=== PATIENT | female | born 1970 | race Caucasian/White ===

== ENCOUNTER 2016-05-26 11:08 | Emergency (ER) | payer OTHER ==
--- NOTE | 2016-05-26 13:50 | ED ORDER SUMMARY ---
..... Patient: ABDON SALDAÑA OrderSheet [facility] VisitID: [id number] [address] [place] [address] 45y, F Registration Date/Time: 05/26/2016 ORDER SHEET Weight: 54.4 kg (stated) Allergies: No Known Drug Allergy GENERAL ORDERS: Suture Set-up: (11:50 05/26/2016 Kilo Bray) (12:41 Lucila R.N.) MEDICATION ORDERS: Oxycodone-APAP PO 5/325 mg (HIGH ALERT MEDICATION, NOW) (11:50 05/26/2016 Kilo Bray) (12:26 Lucila R.N.) IV FLUIDS: ORDER SHEET NOTES: [Electronically signed by Rafael Sanabria Dr. (13:53 05/26/2016)] [Electronically signed by Sobia De Oliveira R.N. (16:19 05/26/2016)] [Electronically locked/signed by Sobia De Oliveira R.N. (16:19 05/26/2016)]
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
--- NOTE | 2016-05-26 13:50 | ED ORDER SUMMARY ---
..... Patient: ABDON SALDAÑA OrderSheet [facility] VisitID: [id number] [address] [place] [address] 45y, F Registration Date/Time: 05/26/2016 ORDER SHEET Weight: 54.4 kg (stated) Allergies: No Known Drug Allergy GENERAL ORDERS: Suture Set-up: (11:50 05/26/2016 Kilo Bray) (12:41 Lucila R.N.) MEDICATION ORDERS: Oxycodone-APAP PO 5/325 mg (HIGH ALERT MEDICATION, NOW) (11:50 05/26/2016 Kilo Bray) (12:26 Lucila R.N.) IV FLUIDS: ORDER SHEET NOTES: [Electronically signed by Rafael Sanabria Dr. (13:53 05/26/2016)] [Electronically signed by Sobia De Oliveira R.N. (16:19 05/26/2016)] [Electronically locked/signed by Sobia De Oliveira R.N. (16:19 05/26/2016)]
--- NOTE | 2016-05-26 16:19 | ED MED RECONCILIATION SUMMARY ---
Patient: ABDON SALDAÑA Medication Reconciliation Report [facility] VisitID: [id number] [address] [place] [address] 45y, F Registration Date/Time: 05/26/2016 Weight: 54.4 kg Height/Length: 66 in. BMI: 19.4 ALLERGIES: No Known Drug Allergy The patient's Home Medications are listed below: CONTINUE TAKING THE FOLLOWING MEDICATIONS: Humira Pen Subcutaneous The source(s) of the original Home Medication information: Not obtained. The following Medications were given to the patient in the Emergency Department: Oxycodone-APAP [PO] PO 1 tab, administered: 05/26/2016 12:26:00 PM The following Medications were prescribed to the patient: Hydrocodone/APAP 5mg / 325mg: take 1 orally every 6 hours as needed for pain. Dispense ten (10). No refill. -- Rafael Sanabrai Dr.
--- NOTE | 2016-05-26 16:19 | ED MED RECONCILIATION SUMMARY ---
Patient: ABDON SALDAÑA Medication Reconciliation Report [facility] VisitID: [id number] [address] [place] [address] 45y, F Registration Date/Time: 05/26/2016 Weight: 54.4 kg Height/Length: 66 in. BMI: 19.4 ALLERGIES: No Known Drug Allergy The patient's Home Medications are listed below: CONTINUE TAKING THE FOLLOWING MEDICATIONS: Humira Pen Subcutaneous The source(s) of the original Home Medication information: Not obtained. The following Medications were given to the patient in the Emergency Department: Oxycodone-APAP [PO] PO 1 tab, administered: 05/26/2016 12:26:00 PM The following Medications were prescribed to the patient: Hydrocodone/APAP 5mg / 325mg: take 1 orally every 6 hours as needed for pain. Dispense ten (10). No refill. -- Rafael Sanabria Dr.
--- NOTE | 2016-05-26 16:19 | ED MAR SUMMARY ---
..... Medication Administration Record [facility] [address] [place] [address] Patient: ABDON SALDAÑA Visit ID: [id number] 45y, F Weight: 54.4 kg Height/Length: 66 in BMI: 19.4 ALLERGIES: No Known Drug Allergy Given 12:26 05/26/2016 Sobia De Oliveira R.N. Medication Administered: OXYCODONE-APAP [PO] (OXYCODONE-ACETAMINOPHEN), Dose: 1 tab 5/325 mg Tablets PO. Medication Ordered: Oxycodone-APAP PO 5/325 mg (HIGH ALERT MEDICATION, NOW).
--- NOTE | 2016-05-26 16:19 | ED DISCHARGE INSTRUCTIONS ---
Patient: ABDON SALDAÑA General Instructions [facility] VisitID: [id number] [place] [address] 45y, F Registration Date/Time: 05/26/2016 Single deep laceration to the forehead.Treatment of laceration not delayed. No infection or foreign body present. Single contusion to the chin. INSTRUCTIONS Protect wound and keep wound area clean. Change dressing twice daily. Apply bacitracin twice daily. Your Current Medications: CONTINUE TAKING THE FOLLOWING MEDICATIONS: Humira Pen Subcutaneous. Prescription Medications: Hydrocodone/APAP 5mg / 325mg: take 1 orally every 6 hours as needed for pain. Dispense ten (10). No refill. Follow-up: Follow up with your doctor in five days for suture removal. Call for an appointment. Screening today revealed the patient's blood pressure to be in the normal range. ADDITIONAL INFORMATION Laceration (All Closures) Alaceration is a cut through the skin. This will usually require stitches (sutures) or miranda if it is deep. Minor cuts may be treated with a surgical tape closure orskin glue. Home care The following guidelines will help you care for your laceration at home: Extremity, face, or trunk wounds Keep the wound clean and dry. If a bandage was applied and it becomes wet or dirty, replace it. Otherwise, leave it in place for the first 24 hours. If stitches or miranda were used, clean the wound daily. After removing the bandage, wash the area with soap and water. Use a wet cotton swab to loosen and remove any blood or crust that forms. The doctor may prescribe an antibiotic cream or ointment to prevent infection. Do not stop taking this medication until you have finished the prescribed course or the doctor tells you to stop. The doctor may also prescribe medications for pain. Follow the doctors instructions for taking these medications. You may remove the bandage to shower as usual after the first 24 hours, but do not soak the area in water (no swimming) until the stitches or miranda are removed. If surgical tape was used, keep the area clean and dry. If it becomes wet, blot it dry with a towel. If skin glue was used, do not scratch, rub, or pick at the adhesive film. Do not place tape directly over the film. Do not apply liquid, ointment, or creams to the wound while the film is in place. Do not clean the wound with peroxide and do not apply ointments. Avoid activities that cause heavy sweating until the film has fallen off. Protect the wound from prolonged exposure to sunlight or tanning lamps. You may shower as usual but do not soak the wound in water (no baths or swimming). The film will fall off by itself in 510 days. Scalp wounds During the first two days, you may carefully rinse your hair in the shower to remove blood, glass or dirt particles. After two days, you may shower and shampoo your hair normally. Do not soak your scalp in the tub or go swimming until the stitches or miranda have been removed. Talk with your doctor before applying any antibiotic ointment to the wound. Mouth wounds Eat soft foods to reduce pain. If the cut is inside of your mouth, clean by rinsing after each meal and at bedtime with a mixture of equal parts water and hydrogen peroxide (do not swallow!). Or, you can use a cotton swab to directly apply hydrogen peroxide onto the cut. Mouth wounds can be painful when eating. You may use an [id number]-[id number] local numbing solution for pain relief. If this is not available, you may use any numbing solution for teething babies. You may apply this directly to the sores with a cotton-tip swab or with your finger. Follow-up care Follow up with your health care provider. Most skin wounds heal within ten days. Mouth and facial wounds heal within five days. However, even with proper treatment, a wound infection may sometimes occur. Therefore, you should check the wound daily for signs of infection listed below. Stitches should be removed from the face within five days; stitches and miranda should be removed from other parts of the body within 714 days. If dissolving stitches were used in the mouth, these will fall out or dissolve without the need for removal. If tape closures were used, remove them yourself if they have not fallen off after 7 days. Ifskin glue was used, the film will fall off by itself in 510 days. When to seek medical care Get prompt medical attention if any of these occur: Bleeding not controlled by direct pressure Signs of infection, including increasing pain in the wound, increasing wound redness or swelling, or pus coming from the wound Fever of 100.4F (38C) or higher, or as directed by your health care provider Stitches or miranda come apart or fall out or surgical tape falls off before 7 days Wound edges re-open Laceration: Will There Be A Scar? A laceration is a cut through one or more layers of the skin. The goal of emergency treatment is to clean the wound and close it to prevent infection, control bleeding and speed healing. Cuts heal because the body is able to repair the skin by "sealing" the edges together with collagen, a kind of "skin cement." How deep your cut is, its location on your body, your age and the way your skin heals all determine how visible the final scar will be. Some persons tend to heal with more scar tissue than others. This cut will probably heal similar to other cuts you have had in the past. What You Can Do: There are a few simple things that you can do to limit the amount of scar that forms: 1) PREVENT INFECTION: An infected wound makes a bigger scar. Keep the wound clean and dry. Change the dressing and apply any ointment/cream as directed. 2) MASSAGE THE WOUND:After the stitches have been removed: Use a moisturizing cream or lotion containing Aloe or Vitamin E Oil and gently massage the skin around the wound with your fingertips (wash your hands first!). Do this twice a day for the first two weeks, then once a day for a month. This will increase the flow of oxygen and blood to the wound and prevent excess scar tissue from building up. 3) AVOID SUN EXPOSURE: During the first six months, avoid sun exposure since the scar may dougherty a much darker color than the skin around it. When in the sun, use SPF #50 (or greater) sun block on the scar, or cover the area with a hat or clothing. What To Expect: -- The cut will be sealed within 2 days and will be strong within 5-10 days. However, it will take at least SIX MONTHS for it to be fully healed. -- During the FIRST THREE MONTHS, you may notice the scar line getting more red or purple in color. The scar may become raised. The skin around the wound may feel thick and lumpy. -- During the FOURTH TO SIXTH MONTHS, this process begins to reverse. The red and purple color will fade, the scar line flattens, and the skin around it feels more normal. -- In most cases, the way the scar line looks after six months is the way it will remain, although there may be some continued improvement up to one year after the injury. Is There Anything Else That Can Be Done? If you do not like the way the scar looks after six months, a plastic surgeon may be able to perform a "scar revision." If you have any questions or problems as your wound heals, contact your doctor or this facility. We will be glad to assist you. Bandage Change If the bandage becomes wet or dirty, replace it. Otherwise, leave it in place for the first 24 hours. Then once a day: After removing the bandage, wash the area with soap and water. Use a wet cotton swab to loosen and remove any blood or crust that forms on the wound. After cleaning, apply a thin layer of antibiotic ointment or cream. Reapply the bandage. You may shower as usual after the first 24 hours. If the bandage is on an arm or leg, cover it with a plastic bag rubber banded at both ends before showering. No tub baths or swimming until the bandage is removed and the wound healed (at least 7 days). Hydrocodone Bitartrate, Acetaminophen Oral tablet What is this medicine? ACETAMINOPHEN; HYDROCODONE (a set a MARNI beatriz fen; ofe droe KOE done) is a pain reliever. It is used to treat mild to moderate pain. How should I use this medicine? Take this medicine by mouth. Swallow it with a full glass of water. Follow the directions on the prescription label. If the medicine upsets your stomach, take the medicine with food or milk. Do not take more than you are told to take. Talk to your program advisor regarding the use of this medicine in children. This medicine is not approved for use in children. What side effects may I notice from receiving this medicine? Side effects that you should report to your doctor or health mall plant caretaker as soon as possible: allergic reactions like skin rash, itching or hives, swelling of the face, lips, or tongue breathing problems confusion feeling faint or lightheaded, falls stomach pain yellowing of the eyes or skin Side effects that usually do not require medical attention (report to your doctor or health mall plant caretaker if they continue or are bothersome): nausea, vomiting stomach upset What may interact with this medicine? alcohol antihistamines isoniazid medicines for depression, anxiety, or psychotic disturbances medicines for sleep muscle relaxants naltrexone narcotic medicines (opiates) for pain phenobarbital ritonavir tramadol What if I miss a dose? If you miss a dose, take it as soon as you can. If it is almost time for your next dose, take only that dose. Do not take double or extra doses. Where should I keep my medicine? Keep out of the reach of children. This medicine can be abused. Keep your medicine in a safe place to protect it from theft. Do not share this medicine with anyone. Selling or giving away this medicine is dangerous and against the law. Store at room temperature between 15 and 30 degrees C (59 and 86 degrees F). Protect from light. Keep container tightly closed. Throw away any unused medicine after the expiration date. Discard unused medicine and used packaging carefully. Pets and children can be harmed if they find used or lost packages. What should I tell my health care provider before I take this medicine? They need to know if you have any of these conditions: brain tumor Crohn's disease, inflammatory bowel disease, or ulcerative colitis drink more than 3 alcohol-containing drinks per day drug abuse or addiction head injury heart or circulation problems kidney disease or problems going to the bathroom liver disease lung disease, asthma, or breathing problems an unusual or allergic reaction to acetaminophen, hydrocodone, other opioid analgesics, other medicines, foods, dyes, or preservatives or trying to get breast-feeding What should I watch for while using this medicine? Tell your doctor or health mall plant caretaker if your pain does not go away, if it gets worse, or if you have new or a different type of pain. You may develop tolerance to the medicine. Tolerance means that you will need a higher dose of the medicine for pain relief. Tolerance is normal and is expected if you take the medicine for a long time. Do not suddenly stop taking your medicine because you may develop a severe reaction. Your body becomes used to the medicine. This does NOT mean you are addicted. Addiction is a behavior related to getting and using a drug for a non-medical reason. If you have pain, you have a medical reason to take pain medicine. Your doctor will tell you how much medicine to take. If your doctor wants you to stop the medicine, the dose will be slowly lowered over time to avoid any side effects. You may get drowsy or dizzy when you first start taking the medicine or change doses. Do not drive, use machinery, or do anything that may be dangerous until you know how the medicine affects you. Stand or sit up slowly. There are different types of narcotic medicines (opiates) for pain. If you take more than one type at the same time, you may have more side effects. Give your health care provider a list of all medicines you use. Your doctor will tell you how much medicine to take. Do not take more medicine than directed. Call emergency for help if you have problems breathing. The medicine will cause constipation. Try to have a bowel movement at least every 2 to 3 days. If you do not have a bowel movement for 3 days, call your doctor or health mall plant caretaker. Too much acetaminophen can be very dangerous. Do not take Tylenol (acetaminophen) or medicines that contain acetaminophen with this medicine. Many non-prescription medicines contain acetaminophen. Always read the labels carefully. You have been given the following additional information: Laceration, All Laceration, How To Minimize Scar Dressing Change Hydrocodone Bitartrate, Acetaminophen Oral tablet (Electronically signed by Rafael Sanabria Dr. 05/26/2016 13:53)
--- NOTE | 2016-05-26 16:19 | ED MAR SUMMARY ---
..... Medication Administration Record [facility] [address] [place] [address] Patient: ABDON SALDAÑA Visit ID: [id number] 45y, F Weight: 54.4 kg Height/Length: 66 in BMI: 19.4 ALLERGIES: No Known Drug Allergy Given 12:26 05/26/2016 Sobia De Oliveira R.N. Medication Administered: OXYCODONE-APAP [PO] (OXYCODONE-ACETAMINOPHEN), Dose: 1 tab 5/325 mg Tablets PO. Medication Ordered: Oxycodone-APAP PO 5/325 mg (HIGH ALERT MEDICATION, NOW).
== END 2016-05-26 15:19 | disposition home or self-care (01) ==
LOC: ED SRH 11:08
DX: S01.81XA Laceration without foreign body of other part of head, initial encounter (principal); S00.83XA Contusion of other part of head, initial encounter; W20.8XXA Other cause of strike by thrown, projected or falling object, initial encounter; Y93.89 Activity, other specified; Y92.009 Unspecified place in unspecified non-institutional (private) residence as the place of occurrence of the external cause; Y99.9 Unspecified external cause status; F17.210 Nicotine dependence, cigarettes, uncomplicated

== ENCOUNTER 2016-08-14 20:12 | Emergency (ER) | payer OTHER ==
--- NOTE | 2016-08-14 20:58 | DIAGNOSTIC IMAGING REPORT ---
PROCEDURE: CT HEAD WITHOUT CONTRAST INDICATION: TRAUMA/INJURY TECHNIQUE: Axial CT images were acquired through the head. Coronal and sagittal reformations were created. COMPARISON: None. FINDINGS: No intracranial hemorrhage or extraaxial fluid collections. Ventricles are normal in size, shape and position. There is no mass, mass effect or midline shift. The solitario-white matter differentiation is normal. There is no edema. The calvarium is intact. The paranasal sinuses and mastoid air cells are normally aerated. The extracranial soft tissues and orbits are normal. IMPRESSION: 1. No CT evidence of acute intracranial process. 2. Findings discussed with Jocelyn Jason at [address] scans at this facility use dose modulation, iterative reconstruction, and/or weight-based dosing when appropriate to reduce radiation dose to as low as reasonably achievable.
--- NOTE | 2016-08-14 21:05 | DIAGNOSTIC IMAGING REPORT ---
PROCEDURE: CT CERVICAL SPINE W/O CONTRAST INDICATION: TRAUMA/INJURY TECHNIQUE: Axial CT images were obtained through the cervical spine. Coronal and sagittal reformations were created. No comparison. COMPARISON: None. FINDINGS: The craniocervical junction is intact. The cervical vertebral bodies are normal in height without evidence of fracture. There is mild to moderate posterior endplate spurring from C5-C7 with mild disc height loss at these levels. There is straightening of the normal cervical lordosis, probably due to patient position in a C-collar. In the anterior epidural space from C5-C7, there is a curvilinear high density material extending from mid C5 vertebral body to mid C7 which is causing moderate diffuse central canal stenosis and flattening of the cord shape. There is also slightly increased amount of high density material in the posterior epidural space from C5-C7. No prevertebral or paravertebral soft-tissue swelling or mass. Patent airway. Mild emphysema is seen at the lung apices. IMPRESSION: 1. Findings concerning for small epidural hematoma from C5-C7. Differential diagnosis includes disc disease and disc extrusion. Nonetheless, the central canal is narrowed and the cord shape is flattened. Chronicity is uncertain. MRI of the cervical spine is recommended. 2. No CT evidence of acute fractures. 3. Degenerative appearing endplate spurring C5-C7. 4. Discussed with Jocelyn Jason in the emergency room. All CT scans at this facility use dose modulation, iterative reconstruction, and/or weight-based dosing when appropriate to reduce radiation dose to as low as reasonably achievable.
--- NOTE | 2016-08-14 21:54 | ED ORDER SUMMARY ---
..... Patient: ABDON SALDAÑA OrderSheet [facility] VisitID: [id number] [place] [address] 46y, F Registration Date/Time: 08/14/2016 ORDER SHEET Weight: 59.8 kg (measured) Allergies: No Known Drug Allergy GENERAL ORDERS: CT Cervical Spine wo Cont Urgent (20:18 08/14/2016 HBivens A.R.N.P.) (Ack 20:20 IJurca ER Tech1) (20:33 IJurca ER Tech1) CT Head wo Cont Urgent (20:18 08/14/2016 HBivens A.R.N.P.) (Ack 20:20 IJurca ER Tech1) (20:33 IJurca ER Tech1) CBC w Diff Urgent (20:19 08/14/2016 HBivens A.R.N.P.) (Ack 20:20 IJurca ER Tech1) (20:31 DDavis R.N.) CMP Urgent (20:19 08/14/2016 HBivens A.R.N.P.) (Ack 20:20 IJurca ER Tech1) (20:31 DDavis R.N.) Serum Qualitative Urgent (20:19 08/14/2016 HBivens A.R.N.P.) (Ack 20:20 IJurca ER Tech1) (20:31 DDavis R.N.) Cervical Spine 4 or 5V Urgent (21:03 08/14/2016 HBivens A.R.N.P.) (Ack 21:04 IJurca ER Tech1) (21:23 HBivens A.R.N.P.) - (straight cath pt for ua please) (21:12 08/14/2016 HBivens A.R.N.P.) (21:13 DDavis R.N.) Urine Drug Screen Urgent (21:12 08/14/2016 HBivens A.R.N.P.) (21:13 DDavis R.N.) UA-Culture if indicated Urgent (21:12 08/14/2016 HBivens A.R.N.P.) (21:13 DDavis R.N.) Ethyl Alcohol Urgent (21:39 08/14/2016 HBivens A.R.N.P.) (21:40 DDavis R.N.) MEDICATION ORDERS: IV FLUIDS: IV NS : initial bolus 1000 mL (1000 mL/hr), then none - (NOW) (20:18 08/14/2016 HBivens A.R.N.P.) (20:35 DDavis R.N.) IV Saline Lock (20:19 08/14/2016 HBivens A.R.N.P.) (20:31 DDavis R.N.) Toradol IV 30 mg (NOW) (22:07 08/14/2016 HBivens A.R.N.P.) (22:36 Rafat Smalls.N.) ORDER SHEET NOTES: [Electronically signed by Jocelyn JasonREricNEricPEric (23:11 08/14/2016)] [Electronically signed by Luis Alanis R.N. (23:39 08/14/2016)] [Electronically locked/signed by Luis Alanis R.N. (23:39 08/14/2016)]
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
--- NOTE | 2016-08-14 21:54 | ED ORDER SUMMARY ---
..... Patient: ABDON SALDAÑA OrderSheet [facility] VisitID: [id number] [place] [address] 46y, F Registration Date/Time: 08/14/2016 ORDER SHEET Weight: 59.8 kg (measured) Allergies: No Known Drug Allergy GENERAL ORDERS: CT Cervical Spine wo Cont Urgent (20:18 08/14/2016 HBivens A.R.N.P.) (Ack 20:20 IJurca ER Tech1) (20:33 IJurca ER Tech1) CT Head wo Cont Urgent (20:18 08/14/2016 HBivens A.R.N.P.) (Ack 20:20 IJurca ER Tech1) (20:33 IJurca ER Tech1) CBC w Diff Urgent (20:19 08/14/2016 HBivens A.R.N.P.) (Ack 20:20 IJurca ER Tech1) (20:31 DDavis R.N.) CMP Urgent (20:19 08/14/2016 HBivens A.R.N.P.) (Ack 20:20 IJurca ER Tech1) (20:31 DDavis R.N.) Serum Qualitative Urgent (20:19 08/14/2016 HBivens A.R.N.P.) (Ack 20:20 IJurca ER Tech1) (20:31 DDavis R.N.) Cervical Spine 4 or 5V Urgent (21:03 08/14/2016 HBivens A.R.N.P.) (Ack 21:04 IJurca ER Tech1) (21:23 HBivens A.R.N.P.) - (straight cath pt for ua please) (21:12 08/14/2016 HBivens A.R.N.P.) (21:13 DDavis R.N.) Urine Drug Screen Urgent (21:12 08/14/2016 HBivens A.R.N.P.) (21:13 DDavis R.N.) UA-Culture if indicated Urgent (21:12 08/14/2016 HBivens A.R.N.P.) (21:13 DDavis R.N.) Ethyl Alcohol Urgent (21:39 08/14/2016 HBivens A.R.N.P.) (21:40 DDavis R.N.) MEDICATION ORDERS: IV FLUIDS: IV NS : initial bolus 1000 mL (1000 mL/hr), then none - (NOW) (20:18 08/14/2016 HBivens A.R.N.P.) (20:35 DDavis R.N.) IV Saline Lock (20:19 08/14/2016 HBivens A.R.N.P.) (20:31 DDavis R.N.) Toradol IV 30 mg (NOW) (22:07 08/14/2016 HBivens A.R.N.P.) (22:36 Rafat Smalls.N.) ORDER SHEET NOTES: [Electronically signed by Jocelyn JasonREricNEricPEric (23:11 08/14/2016)] [Electronically signed by Luis Alanis R.N. (23:39 08/14/2016)] [Electronically locked/signed by Luis Alanis R.N. (23:39 08/14/2016)]
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
--- NOTE | 2016-08-14 23:39 | ED MED RECONCILIATION SUMMARY ---
Patient: ABDON SALDAÑA Medication Reconciliation Report [facility] VisitID: [id number] [address] [place] [address] 46y, F Registration Date/Time: 08/14/2016 Weight: 59.8 kg Height/Length: 66 in. BMI: 21.3 ALLERGIES: No Known Drug Allergy The patient's Home Medications are listed below: Unknown. The source(s) of the original Home Medication information: Not obtained. The following Medications were given to the patient in the Emergency Department: IV NS IV Fluids bolus 0, then 1000 mL/hr, administered: 08/14/2016 8:35:00 PM Toradol [IVP] IVP 30 mg, administered: 08/14/2016 10:26:00 PM The following Medications were prescribed to the patient: None.
--- NOTE | 2016-08-14 23:39 | ED MAR SUMMARY ---
..... Medication Administration Record [facility] [address] [place] [address] Patient: ABDON SALDAÑA Visit ID: [id number] 46y, F Weight: 59.8 kg Height/Length: 66 in BMI: 21.3 ALLERGIES: No Known Drug Allergy Start 20:35 08/14/2016 Luis Alanis REricN., Stop 21:35 08/14/2016 Luis Alanis R.N. Medication Administered: IV NS (SALINE), Dose: IV Fluids over 1 hour(s), Rate: 1000 mL/hr, Dispensed: 1000 mL bag, Site: #1 right AC. Medication Ordered: IV NS : initial bolus 1000 mL (1000 mL/hr), then none - (NOW). Given 22:26 08/14/2016 Michael Matson RJason Medication Administered: TORADOL [IVP], Dose: 30 mg IVP over 2 minute(s), Site: #1 right AC. Medication Ordered: Toradol IV 30 mg (NOW).
--- NOTE | 2016-08-14 23:39 | ED MAR SUMMARY ---
..... Medication Administration Record [facility] [address] [place] [address] Patient: ABDON SALDAÑA Visit ID: [id number] 46y, F Weight: 59.8 kg Height/Length: 66 in BMI: 21.3 ALLERGIES: No Known Drug Allergy Start 20:35 08/14/2016 Luis Alanis REricN., Stop 21:35 08/14/2016 Luis Alanis R.N. Medication Administered: IV NS (SALINE), Dose: IV Fluids over 1 hour(s), Rate: 1000 mL/hr, Dispensed: 1000 mL bag, Site: #1 right AC. Medication Ordered: IV NS : initial bolus 1000 mL (1000 mL/hr), then none - (NOW). Given 22:26 08/14/2016 Michael Matson RJason Medication Administered: TORADOL [IVP], Dose: 30 mg IVP over 2 minute(s), Site: #1 right AC. Medication Ordered: Toradol IV 30 mg (NOW).
--- NOTE | 2016-08-14 23:39 | ED MED RECONCILIATION SUMMARY ---
Patient: ABDON SALDAÑA Medication Reconciliation Report [facility] VisitID: [id number] [address] [place] [address] 46y, F Registration Date/Time: 08/14/2016 Weight: 59.8 kg Height/Length: 66 in. BMI: 21.3 ALLERGIES: No Known Drug Allergy The patient's Home Medications are listed below: Unknown. The source(s) of the original Home Medication information: Not obtained. The following Medications were given to the patient in the Emergency Department: IV NS IV Fluids bolus 0, then 1000 mL/hr, administered: 08/14/2016 8:35:00 PM Toradol [IVP] IVP 30 mg, administered: 08/14/2016 10:26:00 PM The following Medications were prescribed to the patient: None.
== END 2016-08-14 22:56 | disposition short-term general hospital (02) ==
LOC: ED SRH 20:12
DX: S14.13 Anterior cord syndrome of cervical spinal cord (principal); G83.82 Anterior cord syndrome; S16.1XXA Strain of muscle, fascia and tendon at neck level, initial encounter; V47.5XXA Car driver injured in collision with fixed or stationary object in traffic accident, initial encounter; F17.210 Nicotine dependence, cigarettes, uncomplicated; Y93.89 Activity, other specified; Y99.8 Other external cause status; Y92.410 Unspecified street and highway as the place of occurrence of the external cause
CPT/HCPCS: 90004; 90074; 90100; 90469; 92010; 92760; 92761; 92762; 92763; 92764; 92765; 92766; 92767; 95059; 98428